=== PATIENT | male | born 1975 ===

== ENCOUNTER 2016-09-13 07:08 | Emergency (ER) | payer SELFPAY ==
[2016-09-13 07:14] VITALS: TEMP 98.1
[2016-09-13] MEDS ORDERED: Sodium Chloride 0.9% 1,000 ML ONE (07:37)
[2016-09-13] MEDS ORDERED: Iohexol 240 (50 ml) PO STA (07:45)
--- NOTE | 2016-09-13 07:45 | C.PDOC ---
Time Seen by Provider: 09/13/16 07:35 Chief Complaint (Nursing): Abdominal Pain Past Medical History Vital Signs: Last Vital Signs Temp 98.1 F 09/13/16 07:12 Pulse 90 09/13/16 07:12 Resp 18 09/13/16 07:12 BP 116/73 09/13/16 07:12 Pulse Ox 98 09/13/16 07:12 Surgical History: Cholecystectomy - Social History Hx Alcohol Use: Yes Hx Substance Use: No ED Course And Treatment O2 Sat by Pulse Oximetry: 98 Disposition - Disposition Forms: [employer] (Colombian)
--- NOTE | 2016-09-13 07:47 | C.PDOC ---
History Of Present Illness 40 yr old male presents to the ER with complaints of left sided abdominal pain for the past 2 weeks. Patient states 2 weeks ago he was seen at [facility] and was discharged with Pepcid but symptoms persisted. Patient also reports he has has diarrhea every time he eats and this morning he saw some blood. Patient denies fever, nausea, vomiting, dysuria, hematuria, weakness or numbness. Time Seen by Provider: 09/13/16 07:35 Chief Complaint (Nursing): Abdominal Pain History Per: Patient History/Exam Limitations: no limitations Onset/Duration Of Symptoms: Days (2 weeks) Past Medical History Reviewed: Historical Data, Nursing Documentation, Vital Signs Vital Signs: Last Vital Signs Temp 98.1 F 09/13/16 07:12 Pulse 75 09/13/16 10:57 Resp 17 09/13/16 10:57 BP 102/65 09/13/16 10:57 Pulse Ox 98 09/13/16 11:31 Surgical History: Cholecystectomy Family History: States: No Known Family Hx - Social History Hx Alcohol Use: Yes Hx Substance Use: No Review Of Systems Except As Marked, All Systems Reviewed And Found Negative. Constitutional: Negative for: Fever Gastrointestinal: Positive for: Abdominal Pain (Left sided), Diarrhea, Hematochezia. Negative for: Nausea, Vomiting Genitourinary: Negative for: Dysuria, Hematuria Neurological: Negative for: Weakness, Numbness Physical Exam - Physical Exam Appears: Non-toxic, In Acute Distress (Mild distress, holding on his left side. ) Skin: Warm, Dry, No Rash Head: Atraumatic, Normacephalic Oral Mucosa: Moist Gastrointestinal/Abdominal: Soft, Tenderness (LLQ tenderness. ), No Guarding, No Rebound Rectal: Normal Exam, No Blood Streaked Stool, No Mass, No Tenderness Extremity: Normal ROM, No Swelling Neurological/Psych: Oriented x3, Normal Speech, Normal Motor ED Course And Treatment - Laboratory Results Result Diagrams: 09/13/16 07:50 09/13/16 07:50 O2 Sat by Pulse Oximetry: 98 (RA ) Pulse Ox Interpretation: Normal - Other Rad CXR X-Ray: Viewed By Me, Read By Radiologist Interpretation: PROCEDURE: CHEST RADIOGRAPH, 1 VIEW. HISTORY: Abdominal pain. COMPARISON: None available. FINDINGS: LUNGS: Mild venous congestion. Right hilar prominence. Patchy increased markings at the left lung base in a somewhat rounded configuration. Diffuse increased interstitial lung markings. PLEURA: No pneumothorax or pleural fluid seen. CARDIOVASCULAR: Normal. OSSEOUS STRUCTURES: No significant abnormalities. VISUALIZED UPPER ABDOMEN: Normal. OTHER FINDINGS: None. IMPRESSION: Mild venous congestion. Right hilar prominence. Patchy increased markings at the left lung base in a somewhat rounded configuration. Diffuse increased interstitial lung markings. - CT Scan/US CT - Abd & Pelvis Other Rad Studies (CT/US): Read By Radiologist, Radiology Report Reviewed CT/US Interpretation: PROCEDURE: CT Abdomen and Pelvis with oral and IV contrast. HISTORY: abd pain. COMPARISON: None available. TECHNIQUE: Contiguous axial images of the abdomen and pelvis. Oral and IV contrast was administered. Coronal and Sagittal reformats generated and reviewed. Contrast dose: 100 cc Visipaque 320. Radiation dose: Total exam DLP = 771.87 mGy-cm. This CT exam was performed using one or more of the following dose reduction techniques: Automated exposure control, adjustment of the mA and/or kV according to patient size, and/or use of iterative reconstruction technique. FINDINGS: LOWER THORAX: No visible consolidation, pleural effusion, or pneumothorax. Small hiatal hernia/distal esophageal wall thickening. LIVER: 7 mm too small to characterize hepatic hypodensity (series 3, image 55) .Hypoattenuation of the liver compatible with hepatic steatosis. GALLBLADDER AND BILE DUCTS: Cholecystectomy clips. PANCREAS: Unremarkable. SPLEEN: Unremarkable. ADRENALS: Unremarkable. KIDNEYS AND URETERS: The kidneys enhance symmetrically. No hydronephrosis or obstructing renal calculus. BLADDER : Mildly thick-walled urinary bladder presumably exaggerated by under distension. REPRODUCTIVE: Unremarkable. APPENDIX: The appendix appears within normal limits of caliber. No secondary signs of acute appendicitis. BOWEL: The stomach is nondistended. The bowel loops appear within normal limits of caliber without evidence of intestinal obstruction.Most of the left colon is decompressed, limiting evaluation for focal or diffuse pathology. PERITONEUM: No significant free fluid. No definite free air. LYMPH NODES: No bulky lymphadenopathy identified. VASCULATURE: No aortic aneurysm. BONES: Mild degenerative changes. OTHER FINDINGS: None. IMPRESSION: Hepatic steatosis. Too small to characterize 7 mm hepatic hypodensity ; statistically likely a cyst or hemangioma. Cholecystectomy. Mildly thick-walled urinary bladder, presumably exaggerated by under distension. Recommend correlation with urinalysis. Small hiatal hernia/ distal esophageal wall thickening. Additional findings as above. Medical Decision Making Medical Decision Making: PLAN: * CT - Abd & Pelvis * CXR * EKG * CBC * CMP * Urinalysis Disposition Counseled Patient/Family Regarding: Studies Performed, Need For Followup, Rx Given - Disposition Referrals: [facility] [Outside] Disposition: HOME/ ROUTINE Disposition Time: 11:44 Condition: STABLE Prescriptions: Ciprofloxacin [Cipro] 1 tab PO BID #14 tab Instructions: Abdominal Pain (ED) Forms: [employer] (Portuguese), Work Excuse - Clinical Impression Clinical Impression: Abdominal pain, Abdominal colic - Scribe Statement The provider has reviewed the documentation as recorded by the Aleidaibe Jennifer Moreau Provider Attestation: All medical record entries made by the Aleidaibanitra were at my direction and personally dictated by me. I have reviewed the chart and agree that the record accurately reflects my personal performance of the history, physical exam, medical decision making, and the department course for this patient. I have also personally directed, reviewed, and agree with the discharge instructions and disposition.
[2016-09-13] MEDS ORDERED: Iohexol 240 (50 ml) ONE (07:52)
[2016-09-13 08:01] LABS: ALBUMIN 4.2 g/dL (3.5-5.0)
[2016-09-13 08:04] LABS: GFR AFRICAN-AMERICAN > 60; GFR NON-AFRICAN AMERICAN > 60
[2016-09-13 08:05] LABS: ALB/GLOB RATIO 1.3 (1.0-2.1); ALT/SGPT 35 U/L (21-72); AST/SGOT 21 U/L (17-59); BASO % 0.2 % (0.0-2.0); BLOOD UREA NITROGEN 11 mg/dL (9-20); CALCIUM 9.2 mg/dl (8.6-10.4); EOS # 0.3 K/uL (0.0-0.7); EOS % 4.6 % (0.0-4.0); HEMOGLOBIN 14.4 g/dL (12.0-18.0); LIPASE 71 U/L (23-300); MEAN CELL VOLUME 88.4 fL (80.0-94.0); MEAN CORPUSCULAR HEMOGLOBIN 30.3 pg (27.0-31.0); MEAN CORPUSCULAR HGB CONC 34.3 g/dL (33.0-37.0); MEAN PLATELET VOLUME 6.7 fL (7.2-11.7); MONO # 0.7 K/uL (0.0-0.8); MONO % 9.4 % (0.0-10.0); NEUT # 3.3 K/uL (1.8-7.0); NEUT % 44.8 % (50.0-75.0); RBC 4.75 Mil/uL (4.40-5.90); RED CELL DISTRIBUTION WIDTH 11.8 % (11.5-14.5); WHITE BLOOD COUNT 7.3 K/uL (4.8-10.8)
[2016-09-13] MEDS ORDERED: Dexamethasone 10 MG in Sodium Chloride 0.9% 50 ML IV ONE (09:04)
[2016-09-13] MEDS ORDERED: DiphenhydrAMINE 50 mg/ml Inj IVP STA (09:04)
[2016-09-13] MEDS ORDERED: DiphenhydrAMINE 50 mg/ml Inj ONE (09:07)
[2016-09-13] MEDS ORDERED: Dexamethasone 4 mg/1 ml ONE (09:07)
[2016-09-13 09:08] LABS: URINE BILIRUBIN NEGATIVE (NEGATIVE); URINE BLOOD NEGATIVE (NEGATIVE); URINE CLARITY Clear (Clear); URINE COLOR Yellow (YELLOW); URINE GLUCOSE (UA) NORMAL (Normal); URINE LEUKOCYTE ESTERASE NEG Leu/uL (Negative); URINE NITRATE NEGATIVE (NEGATIVE); URINE PROTEIN NEGATIVE (NEGATIVE); URINE UROBILINOGEN NORMAL mg/dL (0.2-1.0)
--- NOTE | 2016-09-13 09:18 | RAD ---
PROCEDURE: CHEST RADIOGRAPH, 1 VIEW HISTORY: Abdominal pain COMPARISON: None available. FINDINGS: LUNGS: Mild venous congestion. Right hilar prominence. Patchy increased markings at the left lung base in a somewhat rounded configuration. Diffuse increased interstitial lung markings. PLEURA: No pneumothorax or pleural fluid seen. CARDIOVASCULAR: Normal. OSSEOUS STRUCTURES: No significant abnormalities. VISUALIZED UPPER ABDOMEN: Normal. OTHER FINDINGS: None. IMPRESSION: Mild venous congestion. Right hilar prominence. Patchy increased markings at the left lung base in a somewhat rounded configuration. Diffuse increased interstitial lung markings.
[2016-09-13] MEDS ORDERED: Iodixanol 320 MG/ML 100 ML BOTTLE IV ONE (10:11)
--- NOTE | 2016-09-13 11:15 | CT ---
PROCEDURE: CT Abdomen and Pelvis with oral and IV contrast. HISTORY: abd pain COMPARISON: None available TECHNIQUE: Contiguous axial images of the abdomen and pelvis. Oral and IV contrast was administered. Coronal and Sagittal reformats generated and reviewed. Contrast dose: 100 cc Visipaque 320 Radiation dose: Total exam DLP = 771.87 mGy-cm. This CT exam was performed using one or more of the following dose reduction techniques: Automated exposure control, adjustment of the mA and/or kV according to patient size, and/or use of iterative reconstruction technique. FINDINGS: LOWER THORAX: No visible consolidation, pleural effusion, or pneumothorax. Small hiatal hernia/distal esophageal wall thickening. LIVER: 7 mm too small to characterize hepatic hypodensity (series 3, image 55).Hypoattenuation of the liver compatible with hepatic steatosis. GALLBLADDER AND BILE DUCTS: Cholecystectomy clips. PANCREAS: Unremarkable. SPLEEN: Unremarkable. ADRENALS: Unremarkable. KIDNEYS AND URETERS: The kidneys enhance symmetrically. No hydronephrosis or obstructing renal calculus. BLADDER: Mildly thick-walled urinary bladder presumably exaggerated by under distension. REPRODUCTIVE: Unremarkable. APPENDIX: The appendix appears within normal limits of caliber. No secondary signs of acute appendicitis. BOWEL: The stomach is nondistended. The bowel loops appear within normal limits of caliber without evidence of intestinal obstruction.Most of the left colon is decompressed, limiting evaluation for focal or diffuse pathology. PERITONEUM: No significant free fluid. No definite free air. LYMPH NODES: No bulky lymphadenopathy identified. VASCULATURE: No aortic aneurysm. BONES: Mild degenerative changes. OTHER FINDINGS: None. IMPRESSION: Hepatic steatosis. Too small to characterize 7 mm hepatic hypodensity ; statistically likely a cyst or hemangioma. Cholecystectomy. Mildly thick-walled urinary bladder, presumably exaggerated by under distension. Recommend correlation with urinalysis. Small hiatal hernia/ distal esophageal wall thickening. Additional findings as above.
[2016-09-13 11:31] VITALS: O2SAT 98
[2016-09-13 11:56] VITALS: BP 108/65; PULSE 72; RESP 18
--- NOTE | 2016-09-14 08:12 | CARD ---
APPROVED REPORT EKG Measurement Heart [id number] CT [id number] <Conclusion> Normal sinus rhythm Normal ECG
== END 2016-09-13 12:02 | disposition home or self-care (01) ==
LOC: C.ER 07:08
DX: R10.84 Generalized abdominal pain (principal); Z90.49 Acquired absence of other specified parts of digestive tract
CPT/HCPCS: 71010; 74177; 80053; 81001; 83690; 85025; 93005; 96365; 96375; 99285; G0328; J1100; J1200; J2405; Q9966; Q9967

== ENCOUNTER 2017-10-06 10:13 | Emergency (ER) | payer MEDICAID, OTHER ==
[2017-10-06 10:14] VITALS: BMI 29.8
[2017-10-06 10:26] VITALS: RESP 18
[2017-10-06] MEDS ORDERED: Sodium Chloride 0.9% 1,000 ML IV ONE (11:21)
--- NOTE | 2017-10-06 11:24 | C.PDOC ---
History Of Present Illness 41 y/o male with history of Acute Renal Failure presents to ED with c/o Nausea, vomiting, diarrhea and back pain for 3 days. Patient denies recent travel, fever , chills, rash, dysuria, hematuria, bowel/bladder incontinence or any other complaints at this time. Time Seen by Provider: 10/06/17 10:35 Chief Complaint (Nursing): GI Problem History Per: Patient History/Exam Limitations: no limitations Onset/Duration Of Symptoms: Days Current Symptoms Are (Timing): Still Present Past Medical History Reviewed: Historical Data, Nursing Documentation, Vital Signs Vital Signs: Last Vital Signs Temp 98.3 F 10/06/17 13:12 Pulse 73 10/06/17 13:12 Resp 18 10/06/17 13:12 BP 131/61 10/06/17 13:12 Pulse Ox 98 10/06/17 13:12 - Medical History PMH: Anxiety, Kidney Stones, Chronic Kidney Disease Surgical History: Cholecystectomy - [facility] Procedures INJECT/INFUSE NEC (11/10/06) INTRODUCTION OF SERUM/TOX/VACCINE INTO MUSCLE, PERC APPROACH (07/24/15) Family History: States: No Known Family Hx - Social History Hx Alcohol Use: No Hx Substance Use: No Review Of Systems Constitutional: Negative for: Fever, Chills Gastrointestinal: Positive for: Vomiting, Abdominal Pain, Diarrhea Genitourinary: Negative for: Dysuria, Frequency, Incontinence Musculoskeletal: Positive for: Back Pain Skin: Negative for: Rash Physical Exam - Physical Exam Appears: Non-toxic, No Acute Distress Skin: Warm, Dry, No Rash Head: Atraumatic, Normacephalic Eye(s): bilateral: Normal Inspection Oral Mucosa: Moist Neck: Normal ROM, Supple Chest: Symmetrical, No Tenderness Cardiovascular: Rhythm Regular, No Friction Rub, No Murmur Respiratory: Normal Breath Sounds, No Rales, No Rhonchi, No Wheezing Gastrointestinal/Abdominal: Soft, No Tenderness, No Guarding, No Rebound Back: No CVA Tenderness, No Paraspinal Tenderness Neurological/Psych: Oriented x3, Normal Speech, Normal Cognition, Normal Motor Gait: Steady ED Course And Treatment - Laboratory Results Result Diagrams: 10/06/17 11:34 10/06/17 11:34 O2 Sat by Pulse Oximetry: 96 (RA) Pulse Ox Interpretation: Normal Medical Decision Making Medical Decision Making: On re-exam, the patient reports improvement of symptoms. Lungs are CTA, heart is RRR, abdomen is soft, non-tender and tolerating PO well. Ambulatory in the ED with steady gait. Follow up with the medical doctor within 1-2 days. Return if worsened. Kim Romeo All medical record entries made by the Scribe were at my direction and personally dictated by me. I have reviewed the chart and agree that the record accurately reflects my personal performance of the history, physical exam, medical decision making, and the department course for this patient. I have also personally directed, reviewed, and agree with the discharge instructions and disposition. Disposition - Disposition Referrals: [facility] [Outside] Disposition: HOME/ ROUTINE Disposition Time: 13:04 Condition: GOOD Additional Instructions: Follow up with the medical doctor within 1-2 days. Return if worsened. Instructions: Viral Syndrome (DC) Forms: [employer] (Turkish), Work Excuse - POA Present On Arrival: None - Clinical Impression Clinical Impression: Viral syndrome - PA / [employer] / Resident Statement MD/DO has reviewed & agrees with the documentation as recorded. - Scribe Statement The provider has reviewed the documentation as recorded by the Scribe Kim Romeo All medical record entries made by the Scribe were at my direction and personally dictated by me. I have reviewed the chart and agree that the record accurately reflects my personal performance of the history, physical exam, medical decision making, and the department course for this patient. I have also personally directed, reviewed, and agree with the discharge instructions and disposition.
[2017-10-06] MEDS ORDERED: Sodium Chloride 0.9% 1,000 ML ONE (11:42)
[2017-10-06 11:54] LABS: BASO % 0.3 % (0.0-2.0); EOS # 0.1 K/uL (0.0-0.7); EOS % 0.9 % (0.0-4.0); HEMOGLOBIN 14.6 g/dL (12.0-18.0); LYMPH # 2.1 K/uL (1.0-4.3); LYMPH % 22.3 % (20.0-40.0); MEAN CORPUSCULAR HEMOGLOBIN 31.3 pg (27.0-31.0); MEAN CORPUSCULAR HGB CONC 34.4 g/dL (33.0-37.0); MEAN PLATELET VOLUME 6.8 fL (7.2-11.7); MONO # 0.6 K/uL (0.0-0.8); MONO % 6.5 % (0.0-10.0); NEUT # 6.5 K/uL (1.8-7.0); NRBC % 0.1 % (0.0-2.0); RBC 4.65 Mil/uL (4.40-5.90); RED CELL DISTRIBUTION WIDTH 12.5 % (11.5-14.5); WHITE BLOOD COUNT 9.3 K/uL (4.8-10.8)
[2017-10-06 11:57] LABS: MEAN CELL VOLUME 90.9 fL (80.0-94.0)
[2017-10-06 12:08] LABS: SQUAMOUS EPITHIAL < 1 /hpf (0-5); URINE BILIRUBIN NEGATIVE (NEGATIVE); URINE BLOOD NEGATIVE (NEGATIVE); URINE CLARITY Clear (Clear); URINE COLOR Yellow (YELLOW); URINE GLUCOSE (UA) NORMAL (Normal); URINE LEUKOCYTE ESTERASE NEG Leu/uL (Negative); URINE PROTEIN NEGATIVE (NEGATIVE); URINE UROBILINOGEN NORMAL mg/dL (0.2-1.0)
[2017-10-06 12:18] LABS: ALB/GLOB RATIO 1.5 (1.0-2.1); ALBUMIN 4.3 g/dL (3.5-5.0); ALT/SGPT 48 U/L (21-72); AST/SGOT 30 U/L (17-59); BLOOD UREA NITROGEN 18 mg/dL (9-20); CALCIUM 9.3 mg/dl (8.6-10.4); GFR NON-AFRICAN AMERICAN > 60; LIPASE 59 U/L (23-300)
[2017-10-06 13:12] VITALS: BP 131/61; PULSE 73; TEMP 98.3
[2017-10-07 22:01] VITALS: O2SAT 96
== END 2017-10-06 13:40 | disposition home or self-care (01) ==
LOC: C.ER 10:13
DX: B34.9 Viral infection, unspecified (principal); N18.9 Chronic kidney disease, unspecified
CPT/HCPCS: 80053; 81001; 83690; 85025; 87086; 96361; 96374; 99284; J2405; J7030